=== PATIENT | male | born 1970 | race Caucasian/White ===

== ENCOUNTER 2022-10-03 10:42 | Inpatient (IN) | payer BC, SELFPAY ==
[~2022-10-03 10:42] MED LIST: Iopamidol 370 76% 100 ML VIAL ONE
[2022-10-03 11:43] LABS: Bacteria/HPF 2+ HPF (None Seen); Bilirubin Negative (Negative); Blood, Urine Negative (Negative); Clarity Clear (Clear); Glucose, Urine (Dipstick) Normal (Negative); Ketone, Urine Negative (Negative); Leukocyte 500 Leu/uL (Negative); Nitrite Negative (Negative); Protein, Urine (Dipstick) Negative (Neg-Trace); RBC/HPF 0-3 HPF (0-3); Specific Gravity, Urine 1.007 (1.002-1.036); Squamous Epithelial 0-3 HPF (0-3); Urobilinogen Normal mg/dL (Less than 2); WBC/HPF 21-50 HPF (0-3); pH, Urine 5.5 (5.0-9.0)
[2022-10-03 11:49] LABS: Hemoglobin 8.5 g/dL (14.0-18.0); Mean Corpuscular Volume 67.2 fl (78.0-98.0); Red Blood Cell (RBC) Count 4.23 mill/uL (4.70-6.10); White Blood Cell (WBC) Count 19.1 10x3/uL (4.8-10.8)
[2022-10-03 12:04] LABS: ALT (SGPT) 16 U/L (8-55); AST (SGOT) 26 U/L (5-34); Albumin 3.1 g/dL (3.5-5.0); Alkaline Phosphatase 188 U/L (40-110); Anion Gap 12 mmol/L (10-20); BUN (Urea Nitrogen) 9 mg/dL (8.4-25.7); Bilirubin, Total 0.4 mg/dL (0.2-1.2); Calc. Creatinine Clearance 0 mL/min (70-130); Calcium 8.5 mg/dL (7.8-10.44); Carbon Dioxide 21 mmol/L (22-29); Chloride 97 mmol/L (98-107); Estimated GFR 105; Globulin 4.4 g/dL (2.4-3.5); Glucose 208 mg/dL (70-105); Lipase 46 U/L (8-78); Potassium 4.3 mmol/L (3.5-5.1); Protein, Total 7.5 g/dL (6.0-8.3); Sodium 126 mmol/L (136-145)
[2022-10-03] MEDS ORDERED: Cefepime 2 GM VIAL ONE (12:14)
[2022-10-03] MEDS ORDERED: Vancomycin 1 GM/200 ML (FROZEN) BAG ONE (12:14)
[2022-10-03 12:20] LABS: #Basophils 0.1 thou/uL (0.0-0.2); #Eosinphils 0.3 thou/uL (0.0-0.7); #Lymphocytes 1.4 thou/uL (1.20-3.40); #Monocytes 1.4 thou/uL (0.11-0.59); %Basophils 0.3 % (0.0-1.0); %Eosinophils 1.7 % (0.0-10.0); %Lymphocytes 7.2 % (21.0-51.0); %Monocytes 7.2 % (0.0-10.0); %Neutrophils 83.7 % (42.0-75.0); Anisocytosis SLIGHT = 6-15 cells (100X) (0-5/hpf); Hypochromia SLIGHT = 6-15 cells (100X) (0-5/hpf); Lymphocytes 10 % (21-51); MDiff Complete? YES; Mean Corpuscular Hemoglobin 20.1 pg (27.0-31.0); Mean Platelet Volume 9.2 fL (7.4-10.4); Microcytosis SLIGHT = 6-15 cells (100X) (0-5/hpf); Monocytes 7 % (0-10); Neutrophil 83 % (42-75); Platelet Count 263 10x3/uL (130-400); Platelet Morphology Comment Appears Adequate; Polychromasia SLIGHT = 2-3 cells (100X) (0-2/hpf); RBC Distribution Width 15.9 % (11.5-14.5)
[2022-10-03] MEDS ORDERED: Ondansetron ODT 4 MG TAB PO PRN (15:12)
[2022-10-03] MEDS ORDERED: Loperamide HCl 2 MG CAP PO PRN (15:12)
[2022-10-03] MEDS ORDERED: HYDROcodone/Acetaminophen 5/325 mg Tablet PO PRN (15:12)
[2022-10-03 16:33] LABS: Lactic Acid 1.2 mmol/L (0.5-2.2)
[2022-10-03 16:36] VITALS: BMI 26.4
[2022-10-03] MEDS: Lactated Ringer's 1,000 ML IV SCH (16:51)
[2022-10-03] MEDS ORDERED: Zolpidem Tartrate 5 MG TAB PO PRN (21:00)
[2022-10-03] MEDS: Famotidine 20 MG TAB PO SCH (21:21)
[2022-10-03] MEDS: Acetaminophen 325 MG TAB PO PRN (21:21)
[2022-10-04] MEDS: Lactated Ringer's 1,000 ML IV SCH ×3 (00:49→16:34)
[2022-10-04 06:35] LABS: #Basophils 0.1 thou/uL (0.0-0.2); #Eosinphils 0.5 thou/uL (0.0-0.7); #Lymphocytes 1.3 thou/uL (1.20-3.40); #Monocytes 0.9 thou/uL (0.11-0.59); #Neutrophils 10.5 thou/uL (1.40-6.50); %Basophils 0.8 % (0.0-1.0); %Eosinophils 3.7 % (0.0-10.0); %Neutrophils 78.7 % (42.0-75.0); Hemoglobin 7.5 g/dL (14.0-18.0); Mean Corpuscular HGB CONC 29.5 g/dL (32.0-36.0); Mean Corpuscular Hemoglobin 19.9 pg (27.0-31.0); Mean Corpuscular Volume 67.4 fl (78.0-98.0); Mean Platelet Volume 9.7 fL (7.4-10.4); Platelet Count 225 10x3/uL (130-400); RBC Distribution Width 16.1 % (11.5-14.5); Red Blood Cell (RBC) Count 3.77 mill/uL (4.70-6.10); White Blood Cell (WBC) Count 13.4 10x3/uL (4.8-10.8)
[2022-10-04 06:51] LABS: ALT (SGPT) 15 U/L (8-55); AST (SGOT) 25 U/L (5-34); Albumin 2.5 g/dL (3.5-5.0); Alkaline Phosphatase 158 U/L (40-110); Anion Gap 9 mmol/L (10-20); BUN (Urea Nitrogen) 8 mg/dL (8.4-25.7); Bilirubin, Total 0.3 mg/dL (0.2-1.2); Calc. Creatinine Clearance 142 mL/min (70-130); Calcium 8.1 mg/dL (7.8-10.44); Carbon Dioxide 23 mmol/L (22-29); Chloride 104 mmol/L (98-107); Estimated GFR 112; Globulin 3.8 g/dL (2.4-3.5); Glucose 116 mg/dL (70-105); Protein, Total 6.3 g/dL (6.0-8.3); Sodium 132 mmol/L (136-145)
[2022-10-04] MEDS: Famotidine 20 MG TAB PO SCH ×2 (08:17→20:25)
[2022-10-04] MEDS ORDERED: FLU VACC QS2022-23(6MO UP)/PF 60 MCG/0.5 ML SYRINGE IM ONE (09:00)
[2022-10-04] MEDS ORDERED: HYDROcodone/Acetaminophen 5/325 mg Tablet PO PRN (10:07)
[2022-10-04] MEDS: cefTRIAXone\\ROCEPHIN 1 GM in Sodium Chloride 0.9% 100 ML IVPB SCH (10:57)
[2022-10-04] MEDS ORDERED: GoLYTELY 4,000 ml Bottle PO SCH (14:00)
[2022-10-05] MEDS: Lactated Ringer's 1,000 ML IV SCH ×2 (00:54→09:20)
[2022-10-05] MEDS: Acetaminophen 325 MG TAB PO PRN ×2 (05:18→18:26)
[2022-10-05] MEDS ORDERED: Lidocaine 1% PF 5 ML VIAL ONE (08:06)
[2022-10-05] MEDS ORDERED: PROPOFOL 200 MG/20 ML VIAL ONE (08:06)
[2022-10-05] MEDS: Famotidine 20 MG TAB PO SCH ×2 (09:24→20:51)
[2022-10-05 10:45] LABS: #Eosinphils 0.3 thou/uL (0.0-0.7); #Lymphocytes 1.1 thou/uL (1.20-3.40); #Monocytes 0.8 thou/uL (0.11-0.59); %Basophils 0.3 % (0.0-1.0); %Eosinophils 2.5 % (0.0-10.0); %Lymphocytes 10.1 % (21.0-51.0); %Monocytes 7.4 % (0.0-10.0); %Neutrophils 79.8 % (42.0-75.0); Hemoglobin 6.9 g/dL (14.0-18.0); Mean Corpuscular HGB CONC 29.8 g/dL (32.0-36.0); Mean Corpuscular Hemoglobin 19.9 pg (27.0-31.0); Mean Corpuscular Volume 66.6 fl (78.0-98.0); Mean Platelet Volume 9.3 fL (7.4-10.4); Platelet Count 199 10x3/uL (130-400); RBC Distribution Width 15.9 % (11.5-14.5); Red Blood Cell (RBC) Count 3.46 mill/uL (4.70-6.10); White Blood Cell (WBC) Count 11.2 10x3/uL (4.8-10.8)
[2022-10-05 10:56] LABS: ALT (SGPT) 13 U/L (8-55); AST (SGOT) 22 U/L (5-34); Albumin 2.5 g/dL (3.5-5.0); Alkaline Phosphatase 147 U/L (40-110); Anion Gap 10 mmol/L (10-20); BUN (Urea Nitrogen) 8 mg/dL (8.4-25.7); Bilirubin, Total 0.3 mg/dL (0.2-1.2); Calc. Creatinine Clearance 142 mL/min (70-130); Carbon Dioxide 25 mmol/L (22-29); Chloride 101 mmol/L (98-107); Estimated GFR 112; Globulin 3.7 g/dL (2.4-3.5); Glucose 130 mg/dL (70-105); Potassium 3.9 mmol/L (3.5-5.1); Protein, Total 6.2 g/dL (6.0-8.3); Sodium 132 mmol/L (136-145)
[2022-10-05 11:31] LABS: Elliptocytes SLIGHT = 2-5 cells (100X) (0-1/hpf); Hypochromia MODERATE=16-30 cells (100X) (0-5/hpf); MDiff Complete? YES; Microcytosis MARKED = >30 cells (100X) (0-5/hpf); Ovalocytes SLIGHT = 2-5 cells (100X) (0-1/hpf); Platelet Morphology Comment Appears Adequate; Polychromasia SLIGHT = 2-3 cells (100X) (0-2/hpf)
[2022-10-05] MEDS: cefTRIAXone\\ROCEPHIN 1 GM in Sodium Chloride 0.9% 100 ML IVPB SCH (11:43)
[2022-10-05 22:32] LABS: Hemoglobin 7.5 g/dL (14.0-18.0)
[2022-10-06 07:37] LABS: #Eosinphils 0.3 thou/uL (0.0-0.7); #Monocytes 0.8 thou/uL (0.11-0.59); #Neutrophils 7.5 thou/uL (1.40-6.50); %Basophils 0.3 % (0.0-1.0); %Lymphocytes 10.3 % (21.0-51.0); %Monocytes 8.5 % (0.0-10.0); %Neutrophils 77.9 % (42.0-75.0); Hemoglobin 7.4 g/dL (14.0-18.0); Mean Corpuscular HGB CONC 30.2 g/dL (32.0-36.0); Mean Corpuscular Hemoglobin 20.7 pg (27.0-31.0); Mean Corpuscular Volume 68.5 fl (78.0-98.0); Mean Platelet Volume 9.4 fL (7.4-10.4); Platelet Count 191 10x3/uL (130-400); RBC Distribution Width 16.4 % (11.5-14.5); Red Blood Cell (RBC) Count 3.59 mill/uL (4.70-6.10); White Blood Cell (WBC) Count 9.6 10x3/uL (4.8-10.8)
[2022-10-06 07:55] LABS: ALT (SGPT) 12 U/L (8-55); AST (SGOT) 19 U/L (5-34); Alkaline Phosphatase 135 U/L (40-110); Anion Gap 11 mmol/L (10-20); BUN (Urea Nitrogen) 6 mg/dL (8.4-25.7); Bilirubin, Total 0.6 mg/dL (0.2-1.2); Calc. Creatinine Clearance 156 mL/min (70-130); Calcium 7.8 mg/dL (7.8-10.44); Carbon Dioxide 24 mmol/L (22-29); Chloride 102 mmol/L (98-107); Estimated GFR 115; Globulin 3.7 g/dL (2.4-3.5); Glucose 111 mg/dL (70-105); Protein, Total 5.7 g/dL (6.0-8.3); Sodium 133 mmol/L (136-145)
[2022-10-06] MEDS: Famotidine 20 MG TAB PO SCH (09:42)
[2022-10-06] MEDS: cefTRIAXone\\ROCEPHIN 1 GM in Sodium Chloride 0.9% 100 ML IVPB SCH (12:07)
[2022-10-06 14:27] LABS: Iron 11 ug/dL (65-175); Iron Binding Capacity, Total 181 mcg/dL (261-462)
[2022-10-06] MEDS ORDERED: Iron Sucrose Complex 200 MG in Sodium Chloride 0.9% 100 ML IVPB SCH (15:15)
[2022-10-06] MEDS ORDERED: Iron, Sodium Ferric Gluconate 250 MG in Sodium Chloride 0.9% 250 ML 250 ML IVPB SCH (15:30)
[2022-10-06 16:29] VITALS: BP 121/71; TEMP 97.9
== END 2022-10-06 20:33 | disposition home or self-care (01) | DRG 375 ==
LOC: ERS 10:42 → T4-B 14:43
PROVIDERS: ADMIT Family Medicine; ATTEND Hospitalist
PROC: 0DBN8ZX Excision of Sigmoid Colon, Via Natural or Artificial Opening Endoscopic, Diagnostic (ICD-10-PCS; principal; 2022-10-03)
PROC: 30233N1 Transfusion of Nonautologous Red Blood Cells into Peripheral Vein, Percutaneous Approach (ICD-10-PCS; 2022-10-05)
DX: C19 Malignant neoplasm of rectosigmoid junction (principal); C77.9 Secondary and unspecified malignant neoplasm of lymph node, unspecified; C78.7 Secondary malignant neoplasm of liver and intrahepatic bile duct; R65.10 Systemic inflammatory response syndrome (SIRS) of non-infectious origin without acute organ dysfunction; E87.1 Hypo-osmolality and hyponatremia; N39.0 Urinary tract infection, site not specified; D62 Acute posthemorrhagic anemia; I10 Essential (primary) hypertension; D50.9 Iron deficiency anemia, unspecified
CPT/HCPCS: 36415; 36430; 71045; 71260; 74177; 80053; 81003; 81015; 82378; 82550; 82728; 83540; 83550; 83605; 83690; 83880; 84484; 85025; 86850; 86900; 86901; 87040; 87086; 88305; 93005; J0692; J0696; J1650; J2704; J2916; J3370-JW; J3490; J7050; J7120; P9016; Q9967

== ENCOUNTER 2022-10-09 07:47 | Emergency (ER) | payer BC | END 2022-10-09 13:10 | disposition home or self-care (01) | LOC: ERS 07:47 | DX: I80.9 Phlebitis and thrombophlebitis of unspecified site (principal); L03.114 Cellulitis of left upper limb ==

== ENCOUNTER 2022-10-20 08:43 | Emergency (ER) | payer BC ==
[2022-10-20] MEDS ORDERED: Dicyclomine 20 MG TAB ONE (09:47)
[2022-10-20 10:02] LABS: #Eosinphils 0.3 thou/uL (0.0-0.7); #Lymphocytes 0.9 thou/uL (1.20-3.40); #Monocytes 0.9 thou/uL (0.11-0.59); #Neutrophils 11.5 thou/uL (1.40-6.50); %Basophils 0.3 % (0.0-1.0); %Eosinophils 2.3 % (0.0-10.0); %Lymphocytes 6.8 % (21.0-51.0); %Monocytes 6.6 % (0.0-10.0); Hemoglobin 8.7 g/dL (14.0-18.0); Mean Corpuscular HGB CONC 30.1 g/dL (32.0-36.0); Mean Corpuscular Hemoglobin 21.2 pg (27.0-31.0); Mean Corpuscular Volume 70.2 fl (78.0-98.0); Mean Platelet Volume 9.5 fL (7.4-10.4); Platelet Count 238 10x3/uL (130-400); RBC Distribution Width 19.5 % (11.5-14.5); Red Blood Cell (RBC) Count 4.08 mill/uL (4.70-6.10); White Blood Cell (WBC) Count 13.7 10x3/uL (4.8-10.8)
[2022-10-20 10:25] LABS: ALT (SGPT) 14 U/L (8-55); AST (SGOT) 31 U/L (5-34); Alkaline Phosphatase 252 U/L (40-110); Anion Gap 14 mmol/L (10-20); BUN (Urea Nitrogen) 8 mg/dL (8.4-25.7); Bilirubin, Total 0.6 mg/dL (0.2-1.2); Calc. Creatinine Clearance 0 mL/min (70-130); Calcium 8.7 mg/dL (7.8-10.44); Carbon Dioxide 23 mmol/L (22-29); Chloride 96 mmol/L (98-107); Estimated GFR 104; Globulin 4.5 g/dL (2.4-3.5); Glucose 152 mg/dL (70-105); Lipase 32 U/L (8-78); Potassium 4.7 mmol/L (3.5-5.1); Protein, Total 7.5 g/dL (6.0-8.3); Sodium 128 mmol/L (136-145)
[2022-10-20 11:44] LABS: Bacteria/HPF None Seen HPF (None Seen); Bilirubin Negative (Negative); Blood, Urine Negative (Negative); Clarity Clear (Clear); Glucose, Urine (Dipstick) Normal (Negative); Ketone, Urine Negative (Negative); Leukocyte 25 Leu/uL (Negative); Nitrite Negative (Negative); Protein, Urine (Dipstick) Negative (Neg-Trace); RBC/HPF None Seen HPF (0-3); Specific Gravity, Urine 1.035 (1.002-1.036); Squamous Epithelial 0-3 HPF (0-3); Urobilinogen Normal mg/dL (Less than 2)
[2022-10-20] MEDS ORDERED: Iopamidol-370 76% 500 ML MDV (1 ML CHARGE) ONE (15:29)
== END 2022-10-20 12:27 | disposition home or self-care (01) ==
LOC: ERS 08:43
DX: R25.2 Cramp and spasm (principal); C18.9 Malignant neoplasm of colon, unspecified; K59.00 Constipation, unspecified; D72.829 Elevated white blood cell count, unspecified; I10 Essential (primary) hypertension
CPT/HCPCS: 36415; 74177; 80053; 81003; 81015; 83690; 85025; 86900; 86901; 87086; 93005; Q9967

== ENCOUNTER 2022-10-28 10:18 | Day surgery (SDC) | payer BC ==
[2022-10-26 16:15] VITALS: BMI 26.4
[2022-10-28 12:30] LABS: #Eosinphils 0.2 thou/uL (0.0-0.7); #Monocytes 0.9 thou/uL (0.11-0.59); #Neutrophils 11.1 thou/uL (1.40-6.50); %Basophils 0.1 % (0.0-1.0); %Eosinophils 1.4 % (0.0-10.0); %Lymphocytes 7.5 % (21.0-51.0); %Monocytes 6.8 % (0.0-10.0); %Neutrophils 84.1 % (42.0-75.0); Hemoglobin 8.3 g/dL (14.0-18.0); Mean Corpuscular HGB CONC 31.6 g/dL (32.0-36.0); Mean Corpuscular Hemoglobin 21.9 pg (27.0-31.0); Mean Corpuscular Volume 69.4 fl (78.0-98.0); Mean Platelet Volume 9.3 fL (7.4-10.4); Platelet Count 201 10x3/uL (130-400); RBC Distribution Width 19.2 % (11.5-14.5); Red Blood Cell (RBC) Count 3.76 mill/uL (4.70-6.10); White Blood Cell (WBC) Count 13.2 10x3/uL (4.8-10.8)
[2022-10-28 12:45] LABS: Anion Gap 14 mmol/L (10-20); BUN (Urea Nitrogen) 10 mg/dL (8.4-25.7); Calc. Creatinine Clearance 134 mL/min (70-130); Calcium 8.5 mg/dL (7.8-10.44); Carbon Dioxide 24 mmol/L (22-29); Chloride 99 mmol/L (98-107); Estimated GFR 110; Glucose 122 mg/dL (70-105); Sodium 133 mmol/L (136-145)
[2022-10-28] MEDS ORDERED: Lidocaine 2% PF 5 ML VIAL ONE (13:53)
[2022-10-28] MEDS ORDERED: Bupivacaine/Epinephrine 0.25% 30 ML VIAL ONE (13:53)
[2022-10-28] MEDS ORDERED: PROPOFOL 200 MG/20 ML VIAL ONE (14:33)
[2022-10-28] MEDS ORDERED: Lidocaine 1% PF 5 ML VIAL ONE (14:33)
[2022-10-28 15:11] LABS: ALT (SGPT) 13 U/L (8-55); AST (SGOT) 30 U/L (5-34); Albumin 2.7 g/dL (3.5-5.0); Alkaline Phosphatase 256 U/L (40-110); Bilirubin, Total 0.6 mg/dL (0.2-1.2); Globulin 4.2 g/dL (2.4-3.5); Protein, Total 6.9 g/dL (6.0-8.3)
== END 2022-10-28 16:06 | disposition home or self-care (01) ==
LOC: SDC 10:18
PROVIDERS: ATTEND Surgery
DX: C18.7 Malignant neoplasm of sigmoid colon (principal); Z79.899 Other long term (current) drug therapy
CPT/HCPCS: 71045; 85025; C1788; J1642; J2001; J2704

== ENCOUNTER 2022-12-21 15:44 | Outpatient (CLI) | payer BC | END 2022-12-21 15:45 | disposition home or self-care (01) | LOC: CT 15:44 | PROVIDERS: ATTEND Internal Medicine | DX: C18.7 Malignant neoplasm of sigmoid colon (principal) | CPT/HCPCS: 71260; 74177; Q9967 ==